=== PATIENT | female | born 2000 | race Hispanic/Latino ===

== ENCOUNTER 2024-10-30 21:46 | Emergency (ER) | payer BC ==
[~2024-10-30] VITALS: Ht 170.2 cm; Wt 99.5 kg
--- NOTE | 2024-10-30 21:57 | NUR ---
PT CARE ASSUMED AT THIS TIME
--- NOTE | 2024-10-30 21:59 | ERN ---
ED Note History of Present Illness Stated Complaint: BLEEDING C SECTION, FEVER Chief Complaint: Post-Op Problem Time Seen by MD: 21:49 Dictation: PATIENT IS A 24-YEAR-OLD FEMALE HERE WITH STATING SHE IS HAVING SOME BLEEDING FROM HER SITE STATUS POST A ON 10/22 AT [facility] IN [facility]. SHE HAS HAD LOW-GRADE FEVER NO CHILLS NO CHANGE IN URINATION. STATES SHE IS NOT CALLED HER [employer]OR CONTROL SUPERVISOR DOCTOR SINCE THE ONSET OF THE BLEEDING. Allergies: Coded Allergies: No Known Allergies (Unverified Allergy, Unknown, 10/30/24) Past Medical History Past Medical History: No Pertinent History Surgical History: : 1 Para: 1 RN Note Reviewed/Agreed w/PFSH: Yes Review of System Dictation CONSTITUTIONAL: NEGATIVE EXCEPT FOR HPI HEAD/FACE: NEGATIVE EXCEPT FOR HPI EENT: NEGATIVE EXCEPT FOR HPI RESPIRATORY: NEGATIVE EXCEPT FOR HPI GASTROINTESTINAL/ABDOMINAL: NEGATIVE EXCEPT FOR HPI GENITOURINARY: NEGATIVE EXCEPT FOR HPI MUSCULOSKELETAL: NEGATIVE EXCEPT FOR HPI INTEGUMENTARY: NEGATIVE EXCEPT FOR HPI NEUROLOGICAL/PSYCH: NEGATIVE EXCEPT FOR HPI HEMATOLOGIC/LYMPHATIC: NEGATIVE EXCEPT FOR HPI ALL SYSTEMS NEGATIVE, EXCEPT NOTED ABOVE. 13 POINT REVIEW OF SYSTEMS ASSESSED AND ALL NEGATIVE EXCEPT FOR ABOVE. Initial Vital Sign VS Vital Signs Date Time Temp Pulse Resp B/P (MAP) Pulse Ox O2 Delivery O2 Flow Rate FiO2 10/30/24 21:48 99.7 107 20 121/77 98 Room Air 10/30/24 21:58 0 21 Physical Exam Dictation VITAL SIGNS REVIEWED GENERAL APPEARANCE: ALERT, ORIENTED X 3, NO ACUTE DISTRESS, WELL DEVELOPED, NOURISHED. HEAD AND FACE: NON-TRAUMATIC. EYES: PERRL, PINK CONJUNCTIVAS, EYELID NO TRAUMA, ANTERIOR CHAMBER WITH ARCUS SENILIS. EARS: PINNAS INTACT AND NO SIGNS OF TRAUMA OR ERYTHEMA EAR CANALS CLEAR AND NO DISCHARGE TM NO ERYTHEMA NOSE: NO DISCHARGE, NO BLEEDING. OROPHARYNX: MOUTH NORMAL, TONGUE PINK, PHARYNX CLEAR,NO ERYTHEMA, TONSILS NO EXUDATES, NO ABSCESSES NOTED, MUCOUS MEMBRANE MOIST NECK: SUPPLE, NON-TENDER, NO THYROMEGALY, NO MASSES, NO JVD, NO BRUITS BREAST:DEFERRED CHEST:NO TENDERNESS, NO CREPITUS, NO PARADOXICAL MOVEMENT, NO RETRACTIONS LUNGS:CLEAR, WELL-VENTILATED, SYMMETRIC, NO RALES, NO WHEEZING, NO RHONCHI, NO STRIDOR, GOOD BREATH SOUNDS BILATERALLY HEART: REGULAR RATE, REGULAR RHYTHM, NO MURMUR, NO GALLOPS VASCULAR: NO PERIPHERAL EDEMA, ABDOMEN: SOFT, POSITIVE BOWEL SOUNDS, NONDISTENDED, NO GUARDING, NONTENDER, NO REBOUND, NO MASSES NO HEPATOMEGALY, NO SPLENOMEGALY, NO WAGONER'S SIGN, NO HERNIAS. RECTAL: DEFERRED GENITAL: DEFERRED NEUROLOGICAL: NORMAL SPEECH, MOTOR FUNCTION INTACT, SENSORY FUNCTION INTACT MUSCULOSKELETAL: NECK NONTENDER, FULL RANGE OF MOTION, BACK NONTENDER, FULL R JAMES OF MOTION, EXTREMITIES: NONTENDER, FULL RANGE OF MOTION SKIN: COLOR PINK, PATIENT HAS A BIKINI INCISION LINE WITH STERI-STRIPS. SEROSANGUINEOUS DRAINAGE NOTED. NO EXUDATE NO FOCAL TENDERNESS. LYMPHATIC: DEFERRED Results (Laboratory/Radiology) Laboratory/Radiology Laboratory Tests Test 10/30/24 22:21 White Blood Count 12.7 K/uL (4.8-10.8) H Red Blood Count 3.29 MIL/uL (4.00-5.50) L Hemoglobin 9.6 g/dL (12.0-16.0) L Hematocrit 29.0 % (36-48) L Mean Corpuscular Volume 88.1 fL (79-99) Mean Corpuscular Hemoglobin 29.2 pg (27.0-33.0) Mean Corpuscular Hemoglobin Concent 33.1 g/dL (32.0-36.0) Red Cell Distribution Width 12.7 % (11.0-15.5) Platelet Count 333 K/uL (130-400) Mean Platelet Volume 10.7 fL (7.5-10.5) H Nucleated Red Blood Cells 0.0 % (0.0-0.19) Labs Reviewed?: Yes ED Course ED Course Orders Procedure Category Date Status Time Cbc Without LAB 10/30/24 Complete Differential 21:57 Acetaminophen 500mg PHA 10/30/24 Complete Tab (Tylenol 500mg T 22:00 Cephalexin 500 Mg PHA 10/30/24 Verified Capsule (Keflex 500 Mg 23:00 Current Medications Medications (Trade) Dose Ordered Sig/Rhoda Route PRN Reason Start Time Stop Time Status Last Admin Dose Admin Acetaminophen (TYLenol 500MG TAB) 1,000 mg ONCE ONCE PO 10/30/24 22:00 10/30/24 22:04 DC 10/30/24 22:10 Vital Signs Date Time Temp Pulse Resp B/P (MAP) Pulse Ox O2 Delivery O2 Flow Rate FiO2 10/30/24 21:58 99.7 99 17 118/82 100 Room Air* 0 21 10/30/24 21:48 99.7 107 20 121/77 98 Room Air 2230/PATIENT HAS A 010[address] WHITE COUNT. SHE WILL BE GIVEN KEFLEX 1 G BY MOUTH AND REFERRED TO HER COLOR CONTROL SUPERVISOR DOCTOR IN [place] FOR FOLLOW UP AND TREATMENT THE NEXT 2-3 DAYS. Medical Decision Making MDM MEDICAL DECISION-MAKING BASED ON CBC WBCS 12.7 HEMOGLOBIN 9.6. PATIENT WILL BE GIVEN KEFLEX 1 G P.O. FOR SURGICAL SITE REACTION TOLD FOLLOW UP WITH DR. LEONARDO [employer]OR CONTROL SUPERVISOR SURGEON IN THE NEXT 1-2 DAYS. DX & DISP Disposition: Discharge Departure Impression: Primary Impression: Reaction at surgical site Additional Impression: Anemia Condition: Stable Scripts Cephalexin (Cephalexin) 500 Mg Tablet 1 TAB PO QID for 10 Days, #40 TAB 0 Refills Prov: SINCERE SANCHEZ NP 10/30/24 Additional Instructions: FOLLOW-UP WITH PRIMARY CARE PROVIDER IN 1 TO 2 DAYS. TAKE MEDICATIONS DIR ECTED HERE IN THE EMERGENCY ROOM. OKAY TO CONTINUE HOME MEDICATIONS UNLESS OTHERWISE DISCUSSED DURING YOUR VISIT IN THE EMERGENCY ROOM TODAY. RETURN TO YOUR NEAREST EMERGENCY ROOM IF SYMPTOMS WORSEN OR IF THERE IS NO IMPROVEMENT. CALL 911 IF YOU NEED IMMEDIATE ASSISTANCE. TAKE TYLENOL OR MOTRIN [id number] NEEDED AND IF NO CONTRAINDICATIONS ARE PRESENT. INCREASE ORAL HYDRATION. A WOUND CULTURE OR URINE CULTURE WAS ORDERED HERE IN THE EMERGENCY ROOM DEPARTMENT PLEASE FOLLOW-UP WITH PRIMARY CARE PROVIDER AND ADVISE THEM TO GET REPEAT PORTS FROM OUR FACILITY. IF YOU HAD ANY LEE ANN WRAP/SPLINTS THAT WERE APPLIED HERE, PLEASE DO NOT REMOVE THEM UNTIL YOU SEE YOUR PRIMARY CARE OR SPECIALTY. TAKE ANTIBIOTICS DIRECTED UNTIL GONE. FOLLOW ALL INSTRUCTIONS FROM YOUR C- SECTION FROM DR. LEONARDO AND SEE HER IN THE NEXT ONE TWO DAYS FOR FOLLOW UP AND MANAGEMENT. ANY EMERGENT CONDITIONS PLZ FOLLOW UP WITH THE HOSPITAL WHERE YOU HAD YOUR C- SECTION. Referrals: SELF,REFERRAL (PCP) Time of Disposition: 22:33 I have reviewed the case, and I agree with, Diagnosis and Plan SINCERE SANCHEZ NP Oct 30, 2024 21:59
[2024-10-30 22:28] LABS: NUCLEATED RED BLOOD CELLS 0.0 % (0.0-0.19); PLATELET COUNT (AUTO) 333.0 K/uL (130-400); RED BLOOD CELL COUNT(AUTO) 3.29 MIL/uL (4.00-5.50); RED CELL DISTRIBUTION WIDTH 12.7 % (11.0-15.5); WHITE BLOOD COUNT (AUTO) 12.7 K/uL (4.8-10.8)
[2024-10-30] MEDS ORDERED: CEPH500T PO (22:34)
[2024-10-30 22:41] VITALS: BP 127/71; PULSE 90; RESP 16; TEMP 97.5; O2SAT 100
== END 2024-10-30 22:55 | disposition home or self-care (01) ==
LOC: EDH 21:46
DX: L76.22 Postprocedural hemorrhage of skin and subcutaneous tissue following other procedure (principal); D64.9 Anemia, unspecified; Z98.890 Other specified postprocedural states
CPT/HCPCS: 36415; 85027; 99283